=== PATIENT | male | born 1960 | race Caucasian/White ===

== ENCOUNTER → 2018-03-09 | Outpatient (REF) | payer BC | LOC: M SMT 17:13 | PROVIDERS: ATTEND Nurse Practitioner Family | DX: R97.20 Elevated prostate specific antigen [PSA] (principal) ==

== ENCOUNTER → 2018-03-31 | Outpatient (CLI) | payer BC ==
--- NOTE | 2018-03-31 16:03 | REP ---
TRANSRECTAL PROSTATE ULTRASOUND WITH ULTRASOUND GUIDANCE FOR PROSTATE BIOPSY: Real-time sonographic evaluation of prostate performed utilizing transrectal probe. Size of the gland is 4.4 x 2.7 x 5.2 cm for a total volume of 31.6 mL. Echotexture is heterogeneous. Seminal vesicles appear unremarkable. Ultrasound guidance was provided for Dr. Hinton who performed ultrasound guided biopsy of the prostate. Electronically Signed by Luis Daniel Guillen MD 03/31/2018 04:24 P
== END ==
LOC: M SMT PRO 14:00
PROVIDERS: ATTEND Urology
DX: C61 Malignant neoplasm of prostate (principal)
CPT/HCPCS: 76872; 76942; G0416

== ENCOUNTER → 2018-05-05 | Outpatient (CLI) | payer BC ==
--- NOTE | 2018-05-07 13:49 | RADONC ---
RADIATION ONCOLOGY CONSULTATION DATE: 05/05/2018 CHART NUMBER: [id number] REFERRING PHYSICIAN: Dr. Hinton DIAGNOSIS: Adenocarcinoma, prostate status post TRUS biopsy 03/31/2018 secondary to an elevation of his PSA. The tumor was noted to be Juan score 7 (3+4). The tumor was primarily located in the left base, left base lateral, left mid prostate, left lateral prostate biopsies. STAGE: [id number], group stage IIA. ICD-10: V61. ECOG PERFORMANCE STATUS: 0 HISTORY OF PRESENT ILLNESS: The patient is 57 years old and he claims that approximately 2 years ago he obtained a PSA value which was noted to be approximately 8. At that time it was recommended that the patient have a biopsy, but he declined further intervention. He saw a Dr. Norwood who was his new primary care physician and a PSA was retaken (approximately 2 years later). The pathology revealed adenocarcinoma of the prostate [place] 7 (3+4). The PSA was now approximately 10.7 as of 03/31/2018. Options were given to the patient by Dr. Hinton and the patient is leaning toward external beam radiotherapy. In fact, he has already received Eligard 45 mg subcu and is scheduled on May 19 to have fiduciary markers placed. The patient has come to us today to discuss the logistics of external beam radiotherapy and to initiate the treatment planning process. PAST MEDICAL HEALTH: Generally, the patient has been healthy most of his adult life, but he has a history of hyperlipidemia and hypertension as well as his elevated PSA. PAST SURGICAL HISTORY: He had a lumbar discectomy in 2002, and a TRUS biopsy of the prostate on 03/31/2018. MEDICATIONS: - lisinopril 2.5 mg one daily - Zyrtec 10 mg 1 tablet daily - Zantac 150 mg 1 tablet at bedtime. ALLERGIES: 1. CODEINE causes itching. 2. CHANTIX is poorly tolerated with mouth sores and dizziness. SOCIAL HISTORY: The patient is unmarried but lives with a significant other. He has no biologic children, but has an adopted child. 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 ALCOHOL HISTORY: Socially and daily. SMOKING HISTORY: He quit approximately 4-5 months ago, but prior to that smoked one pack per day since he was 14 years old. FAMILY HISTORY OF CANCER: His mother of lung cancer and his father of unknown causes, but had a diagnosis of melanoma and apparently a hematologic disorder. REVIEW OF SYSTEMS: HEENT: The patient denies any nosebleeds, chronic sinusitis, sore throats or head and neck disorders. LYMPHATICS: Denies any lymphadenopathy generalized soreness, swelling. LUNGS: Denies chronic coughing, sputum production, or hemoptysis. CARDIOVASCULAR: Has a history of hypertension, but denies any chest pain, rhythmic disorders, or history of myocardial dysfunction. ABDOMEN: Denies chronic abdominal pain, diarrhea, dysuria, hematuria or blood per rectum. 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 He also has a history of some minor back pain and has had a discectomy in the lumbar spine and S1 area. NEUROLOGIC EXAMINATION: Denies any focal, motor, or neurologic deficits, depression, anxiety, or psychiatric disorders. EXAMINATION FINDINGS: He is a well-nourished male who looks appropriate for his stated age. Weight 199, blood pressure 137/71, temperature 97.9, pulse 55, respirations 78, height 6 feet, O2 saturation 98%. HEENT: Normocephalic. EOMs intact. PERRLA. Fundi benign. LYMPHATICS: No palpable peripheral lymphadenopathy appreciated in the cervical, supraclavicular, axillary, inguinal lymph node chains. LUNGS: Clear. HEART: Regular without murmurs. ABDOMEN: Without evidence of hepatomegaly, masses, deep abdominal tenderness. EXTREMITIES: Without cyanosis, clubbing or edema. NEUROLOGIC: Examination grossly physiologic and nonfocal. IMPRESSION: Adenocarcinoma, prostate, stage [id number]. Group stage IIA. [place] 7 (3+4). The tumor was confined to the left lobe. PSA 10.7. PLAN OF RADIOTHERAPY: Patient for external beam radiotherapy as he is at intermediate risk. He is planned to have his fiducial markers placed on May 19 and can thereafter undergo CT scanning for radiation therapy treatment planning purposes. After appropriate simulation and treatment planning, we are recommending a definitive course of external beam radiotherapy to his prostate via IMRT. The indications, possible side effects such as fatigue, potential diarrhea, hemorrhoidal irritation, rectal irritation, dysuria and frequency have been discussed with the patient as well as potential erectile dysfunction. He understands and is willing to proceed as outlined. Thank you for referring this very fine gentleman to us and allowing us the opportunity of participation in his overall management. cc: Adrian Hinton MD MTDD
== END ==
LOC: M ONCR 08:52
PROVIDERS: ATTEND Radiology Radiation Oncology
DX: C61 Malignant neoplasm of prostate (principal); I10 Essential (primary) hypertension; E78.5 Hyperlipidemia, unspecified; Z88.5 Allergy status to narcotic agent; Z88.8 Allergy status to other drugs, medicaments and biological substances; Z80.1 Family history of malignant neoplasm of trachea, bronchus and lung; Z80.8 Family history of malignant neoplasm of other organs or systems; Z87.891 Personal history of nicotine dependence

== ENCOUNTER → 2018-05-19 | Outpatient (CLI) | payer BC ==
--- NOTE | 2018-05-19 18:40 | REP ---
Ultrasound guidance: History: Elevated PSA. Findings: Transrectal sonographic guidance is provided to Dr. Hinton who placed three prostate fiducial markers. Electronically Signed by Liang Marlow MD 05/19/2018 07:33 P
== END ==
LOC: M SMT 08:08
PROVIDERS: ATTEND Urology
DX: C61 Malignant neoplasm of prostate (principal)
CPT/HCPCS: 76872; A4648

== ENCOUNTER → 2018-07-21 | Outpatient (RCR) | payer BC, OTHER ==
--- NOTE | 2018-06-23 15:07 | RADONC ---
RADIATION ONCOLOGY PROGRESS NOTE DATE: 06/22/2018 CHART NUMBER: [id number] Mr. Trent is presently at a dose of 1800 cGy to his prostate and is tolerating treatments quite well at this point with no complaints related to his radiation therapy. He is having no urinary or bowel difficulties and no bone pain. The patient's review of systems is noncontributory. He denies nausea, vomiting, fevers, chills, night sweats, diplopia, headaches, anxiety or depression, anorexia, weight loss, visual disturbances, chest pain, urinary or bowel difficulties, bone pain, or neurological problems. PHYSICAL EXAMINATION: The patient's skin is in good condition with no evidence of radiation change present. He has got no moist or dry desquamation. The remainder of his physical exam remains unchanged. Mr. Trent is tolerating treatments quite well. Radiation will continue as scheduled.
--- NOTE | 2018-06-30 07:33 | RADONC ---
RADIATION ONCOLOGY PROGRESS NOTE DATE: 06/29/2018 CHART NUMBER: [id number] Mr. Trent is presently at a dose of 2700 cGy to his prostate and is tolerating treatments quite well at this point with no significant complaints related to his radiation therapy. He does have some burning urine. He has no bowel problems. The patient's review of systems is positive for burning urination but is otherwise noncontributory. He denies nausea, vomiting, fevers, chills, night sweats, diplopia, headaches, anxiety or depression, anorexia, weight loss, visual disturbances, chest pain, urinary or bowel difficulties, bone pain, or neurological problems. PHYSICAL EXAMINATION: The patient's skin is in good condition with no evidence of moist or dry desquamation. The remainder of his physical exam remains unchanged. Ms. Trent is tolerating treatments quite well and radiation will continue as scheduled.
[2018-06-30 16:31] LABS: APPEARANCE, URINE CLEAR (CLEAR); BACTERIA, URINE AUTO NEGATIVE (NEGATIVE); BILIRUBIN, URINE AUTO NEGATIVE (NEGATIVE); BLOOD, URINE BLOOD NEGATIVE (NEGATIVE); COLOR, URINE STRAW (YELLOW); GLUCOSE, URINE (UA) AUTO NEGATIVE (NEGATIVE); KETONE, URINE AUTO NEGATIVE (NEGATIVE); LEUKOCYTE ESTERASE, URINE AUTO NEGATIVE (NEGATIVE); NITRITE, URINE AUTO NEGATIVE (NEGATIVE); PROTEIN, URINE AUTO NEGATIVE (NEGATIVE); RBC, URINE AUTO 0 /HPF (0-3); SPECIFIC GRAVITY URINE AUTO 1.008 (1.002-1.035); SQUAMOUS EPITHELIAL CELL UR AU 0 /HPF (0-6); UROBILINOGEN, URINE AUTO 0.2 mg/dL (0.0-2.0); WBC, URINE AUTO 0 /HPF (0-3)
--- NOTE | 2018-07-06 21:51 | RADONC ---
RADIATION ONCOLOGY PROGRESS NOTE DATE: 07/06/2018 CHART NUMBER: [id number] Mr. Trent with a diagnosis of prostate cancer is currently receiving local regional radiotherapy, and he has achieved a dose of 3420 cGy of an anticipated 7920 cGy. Treatments have been well tolerated. He did have a few episodes of dysuria, but generally feels well. REVIEW OF SYSTEMS: He specifically denies any nausea, vomiting, diarrhea, coughing, sputum production, hemoptysis, anxiety, depression, anorexia, weight loss, visual disturbances. EXAMINATION FINDINGS: The patient has no evidence of erythema within the irradiated volume and certainly no focal desquamation. Lymphatics: No lymphadenopathy is appreciated. IMPRESSION: Tolerating therapy well. PLAN: Treatments to continue. MTDD
--- NOTE | 2018-07-16 08:00 | RADONC ---
RADIATION ONCOLOGY PROGRESS NOTE DATE: 07/14/2018 CHART NUMBER: [id number] Mr. Trent is presently at a dose of 4320 cGy to his prostate and is tolerating treatments quite well at this point with no complaints related to his radiation therapy. He is having no urinary or bowel difficulties and no bone pain. The patient's review of systems is noncontributory. He denies nausea, vomiting, fevers, chills, night sweats, diplopia, headaches, anxiety or depression, anorexia, weight loss, visual disturbances, chest pain, urinary or bowel difficulties, bone pain, or neurological problems. PHYSICAL EXAMINATION: The patient's skin is in good condition with no evidence of radiation change present. There is no moist or dry desquamation. The remainder of his physical exam remains unchanged. Ms. Trent is tolerating treatments quite well and radiation will continue as scheduled.
--- NOTE | 2018-07-22 08:35 | RADONC ---
RADIATION ONCOLOGY PROGRESS NOTE DATE: 07/20/2018 CHART NUMBER: [id number] Mr. Raffy taylor is presently a dose of 5220 cGy to his prostate and is tolerating treatments quite well at this point with no complaints related to his radiation therapy. He is having no urinary difficulties. No bone pain. REVIEW OF SYSTEMS: The patient's review of systems is noncontributory. Denies nausea, vomiting, fevers, chills, night sweats, diplopia, headaches, anxiety or depression, anorexia, weight loss, visual disturbances, chest pain, urinary or bowel difficulties, bone pain, or neurological problems. PHYSICAL EXAMINATION The patient's skin is in good condition with no evidence of moist or dry desquamation. The remainder of his physical exam remains unchanged. Mr. Trent is tolerating his treatments quite well, and radiation will continue as scheduled.
== END ==
LOC: M ONCR 06-22 11:56
PROVIDERS: ATTEND Radiology Radiation Oncology
DX: C61 Malignant neoplasm of prostate (principal)

== ENCOUNTER 2018-08-11 08:33 | Outpatient (RCR) | payer BC, OTHER ==
--- NOTE | 2018-07-27 14:19 | RADONC ---
RADIATION ONCOLOGY PROGRESS NOTE DATE: 07/27/2018 CHART NUMBER: [id number] Mr. Trent is thus far at a dose of 5940 cGy to his prostate and was last treated on July 24. He was not treated today secondary to machine breakdown. REVIEW OF SYSTEMS: As of Friday the patient's review of systems was noncontributory. He denies nausea, vomiting, fevers, chills, night sweats, diplopia, headaches, anxiety or depression, anorexia, weight loss, visual disturbances, chest pain, urinary or bowel difficulties, bone pain or neurological problems. PHYSICAL EXAMINATION: The patient's skin when he came in for treatment on Friday was in good condition with no evidence of moist or dry desquamation. The patient had been tolerating treatments quite well and radiation should resume tomorrow.
--- NOTE | 2018-08-03 10:54 | RADONC ---
RADIATION ONCOLOGY PROGRESS NOTE DATE: 08/03/2018 CHART NUMBER: [id number] Mr. Trent is currently receiving local regional radiotherapy and he has achieved a dose thus far of 6840 cGy of an anticipated 7920 cGy. Thus far treatments are going well and he has no new complaints referable to his disease or treatments. REVIEW OF SYSTEMS: He specifically denies any nausea, vomiting, significant diarrhea, dysuria, hematuria or blood per rectum. His energy level is such that he is able to maintain most day-to-day activities without any alteration of his lifestyle. Skin irritation is denied. PHYSICAL EXAMINATION: Reveals no evidence of erythema of the skin nor desquamation. The remainder of his physical examination remains unchanged. IMPRESSION: Tolerating therapy well. PLAN: Treatments to continue. MTDD
--- NOTE | 2018-08-10 09:49 | RADONC ---
RADIATION ONCOLOGY PROGRESS NOTE: DATE: 08/10/2018 CHART NUMBER: [id number] Mr. Trent is presently at a dose of 7840 cGy to his prostate and is tolerating treatments quite well at this point with no complaints related to his radiation therapy. He is having no urinary or bowel difficulties. No bone pain. REVIEW OF SYSTEMS: The patient's review of systems is noncontributory. He denies nausea, vomiting, fevers, chills, night sweats, diplopia, headaches, anxiety or depression, anorexia, weight loss, visual disturbances, chest pain, urinary or bowel difficulties, bone pain, or neurological problems. PHYSICAL EXAMINATION: The patient's skin is in good condition with no evidence of moist or dry desquamation. The remainder of his physical exam remains unchanged. Mr. Trent is tolerating treatments quite well and radiation will continue as scheduled.
--- NOTE | 2018-08-15 10:55 | RADONC ---
RADIATION ONCOLOGY TREATMENT SUMMARY DATE: 08/11/2018 CHART #: [id number] DIAGNOSIS: Prostate cancer. STAGE: II B, [id number], [place] score 7 (3-4), grade group II, PSA 10.7. TREATMENT SUMMARY: Mr. Trent is a very pleasant 57-year-old white male with the diagnosis of what appears to be a stage II B, [id number], [place] score 7(3-4) adenocarcinoma of the prostate with a PSA of 10.7 who presented to us for consideration of definitive external beam radiation therapy with IMRT/IGRT. We treated the patient to his prostate for a total dose of 7920 cGy delivered in 44 fractions of 180 cGy each over 63 elapsed days from 05/29/1918 through 08/11/2018. The patient's prostate was treated on a linear accelerator utilizing a 6 MV photon beam via IMRT/IGRT. We initially treated the prostate and seminal vesicles to a dose of 5400 cGy and subsequently coned down to the prostate itself to deliver an additional 2520 cGy once again bringing it to a total dose of 7920 cGy. Mr. Trent tolerated his treatments quite well with no difficulties related to his radiation therapy. He was able to complete therapy as prescribed without interruption. I have scheduled the patient to see me again in 1 month for further followup. He will also continue to be followed by his other physicians as well. cc: Adrian Hinton MD
== END 2018-08-21 ==
LOC: M ONCR 08:33
PROVIDERS: ATTEND Radiology Radiation Oncology
DX: C61 Malignant neoplasm of prostate (principal)

== ENCOUNTER → 2018-09-09 | Outpatient (CLI) | payer OTHER ==
--- NOTE | 2018-09-11 06:44 | RADONC ---
RADIATION ONCOLOGY FOLLOWUP NOTE DATE: 09/09/2018 CHART #: [id number] DIAGNOSIS: Prostate cancer. STAGE: II B, [id number], Juan score 7 (34), grade group II, PSA 10.7. FOLLOWUP NOTE Mr. Trent is a very pleasant 57-year-old white male with the diagnosis of a stage II B, [id number], moderately to poorly differentiated Juan score seven (3-4) adenocarcinoma of the prostate with a PSA level of initially 10.7 who is presenting to us today for routine followup visit 1 month post completion of external beam radiation therapy. The patient presents today reporting that he is doing quite well. He is doing quite well with no complaints at this time related to his radiation therapy or disease. He is having no urinary or bowel difficulties and no bone pain. REVIEW OF SYSTEMS: The patient's review of systems is noncontributory. Denies nausea, vomiting, fevers, chills, night sweats, diplopia, headaches, anxiety or depression, anorexia, weight loss, visual disturbances, chest pain, urinary or bowel difficulties, bone pain, or neurological problems. PHYSICAL EXAMINATION: The patient is a well-developed, well-nourished male in no acute distress. HEENT exam is normocephalic, atraumatic. Extraocular movements are intact. There is no palpable cervical, supraclavicular, infraclavicular, axillary, or inguinal lymphadenopathy present. Lungs are clear to auscultation and percussion. Heart has a regular rate and rhythm. Abdomen is benign with no hepatosplenomegaly, masses, or tenderness. Rectal examination reveals a normal anal sphincter tone. His prostate is smooth with no evidence of nodularity. Skeletal examination reveals no tenderness to pressure or percussion of the bony skeleton. Extremities reveal no clubbing, cyanosis, or edema. Neurologic exam is grossly intact, as is the remainder of the physical examination. ASSESSMENT: The patient is clinically ANUSHA at this time and will be seen by us again in 6 months for further followup. He will also continue be followed by his other physicians as well. cc: Adrian Hinton MD
== END ==
LOC: M ONCR 09:01
PROVIDERS: ATTEND Radiology Radiation Oncology
DX: Z85.46 Personal history of malignant neoplasm of prostate (principal); Z92.3 Personal history of irradiation

== ENCOUNTER → 2019-01-21 | Outpatient (CLI) | payer BC | LOC: M LAB 16:21 | PROVIDERS: ATTEND Radiology Radiation Oncology | DX: C61 Malignant neoplasm of prostate (principal) ==

== ENCOUNTER → 2019-02-03 | Outpatient (CLI) | payer BC, OTHER ==
--- NOTE | 2019-02-03 12:36 | RADONC ---
RADIATION ONCOLOGY FOLLOWUP NOTE DATE: 02/03/2019 CHART NUMBER: [id number] DIAGNOSIS: Prostate cancer. STAGE: II B, T2b, N0, M0, [place] score 7 (3-4), grade group 2, PSA 10.7. ECOG PERFORMANCE STATUS: 0 FOLLOWUP NOTE: Mr. Trent is a very pleasant 58-year-old white male with the diagnosis of a stage II B, [id number], Juan score 7 (3-4) adenocarcinoma of prostate with an initial PSA score of 10.7, who is presenting to me today for routine followup visit 6 months post completion of external beam radiation therapy. The patient presents today reporting that he continues have hot flashes from his Lupron shots. They are less than they were this summer and are decreasing in frequency and severity but he is continuing to have them. In addition, the patient reports that he has some rectal urgency. He says most days he goes the bathroom just once a day but some days it is three times a day and he occasionally feels strong urgency to go. REVIEW OF SYSTEMS: The patient's review of systems is noncontributory. Denies nausea, vomiting, fevers, chills, night sweats, diplopia, headaches, anxiety or depression, anorexia, weight loss, visual disturbances, chest pain, urinary or bowel difficulties, bone pain, or neurological problems. PHYSICAL EXAMINATION: The patient is a well-developed, well-nourished male in no acute distress. HEENT exam is normocephalic, atraumatic. Extraocular movements are intact. There is no palpable cervical, supraclavicular, infraclavicular, axillary, or inguinal lymphadenopathy present. Lungs are clear to auscultation and percussion. Heart has a regular rate and rhythm. Abdomen is benign with no hepatosplenomegaly, masses, or tenderness. Rectal examination reveals a normal anal sphincter tone. His prostate is smooth with no evidence of nodularity. Skeletal examination reveals no tenderness to pressure or percussion of the bony skeleton. Extremities reveal no clubbing, cyanosis, or edema. Neurologic exam is grossly intact, as is the remainder of the physical examination. ASSESSMENT: The patient is clinically ANUSHA at this time. He is being followed and managed closely by his urologist doctor, Adrian Hinton MD and therefore is being discharged from my followup except on a p.r.n. basis. I did have a lengthy discussion with the patient and he is just 6 months out from radiation. I reassured him that his episodic rectal urgency is normal at this point and should decrease with time. He has not taken any Imodium and I have recommended he may wish to try that if he is having any issues. In addition, I reassured him that as time goes on further from his hormonal treatments his symptoms should diminish. He will be followed by Dr. Hinton for this. I have discharged this patient from my followup except on a p.r.n. basis.
== END ==
LOC: M ONCR 09:24
PROVIDERS: ATTEND Radiology Radiation Oncology
DX: C61 Malignant neoplasm of prostate (principal)

== ENCOUNTER → 2020-09-21 | Outpatient (REF) | payer BC ==
[2020-09-21 12:17] LABS: BASO % 0.2 % (0.0-1.0); EOS # 0.1 10^3/uL (0.0-0.5); EOS % 1.6 % (0.0-3.0); HEMOGLOBIN 14.1 g/dl (13.5-17.5); LYMPH # 1.6 10^3/uL (1.5-5.0); LYMPH % 28.2 % (24.0-44.0); MEAN CORPUSCULAR HGB CONC 32.8 g/dl (32.0-36.5); MEAN CORPUSCULAR VOLUME 94.5 fl (80.0-96.0); MONO # 0.6 10^3/uL (0.0-0.8); MONO % 10.7 % (2.0-8.0); NEUTROPHILS # 3.3 10^3/uL (1.5-8.5); NEUTROPHILS % 58.9 % (36.0-66.0); PLATELET COUNT, AUTOMATED 234 10^3/uL (150-450); RED BLOOD COUNT 4.55 10^6/uL (4.30-6.10); WHITE BLOOD COUNT 5.6 10^3/uL (4.0-10.0)
[2020-09-21 12:43] LABS: ALBUMIN 3.6 GM/DL (3.2-5.2); ALT/SGPT 35 U/L (12-78); BILIRUBIN,TOTAL 0.5 MG/DL (0.2-1.0); BLOOD UREA NITROGEN 22 MG/DL (7-18); CARBON DIOXIDE LEVEL 28 MEQ/L (21-32); CHLORIDE LEVEL 103 MEQ/L (98-107); CREATININE FOR GFR 0.98 MG/DL (0.70-1.30); GLOMERULAR FILTRATION RATE > 60.0 (>56); GLUCOSE, FASTING 98 MG/DL (70-100); POTASSIUM SERUM 4.6 MEQ/L (3.5-5.1); SODIUM LEVEL 137 MEQ/L (136-145); TOTAL PROTEIN 7.3 GM/DL (6.4-8.2)
[2020-09-21 12:58] LABS: ERYTHROCYTE SEDIMENTATION RATE 7 mm/hr (0-20)
== END ==
LOC: M SFHCRHEU 08:57
PROVIDERS: ATTEND Internal Medicine Rheumatology
DX: M25.50 Pain in unspecified joint (principal); H16.203 Unspecified keratoconjunctivitis, bilateral

== ENCOUNTER → 2020-12-03 | Outpatient (CLI) | payer BC ==
--- NOTE | 2020-12-03 19:06 | REPVR ---
PROCEDURE INFORMATION: Exam: MR Pelvis Without Contrast, Musculoskeletal Exam date and time: 12/03/2020 5:42 PM Age: 59 years old Clinical indication: Patient HX: Ankylosing spondylosis, severe low back and pelvic pain TECHNIQUE: Imaging protocol: Magnetic resonance images of the pelvis without intravenous contrast. Exam focused on the musculoskeletal system. COMPARISON: US PROSTATE TRANSRECTAL 03/31/2018 2:24 PM FINDINGS: There is no MR evidence of acute fracture or dislocation. Alignment is anatomic. Bone marrow signal is normal. There is partial bony fusion of the sacroiliac joints. The hip joint spaces are preserved. No acute erosive or destructive changes are seen. There is no lytic or blastic lesion. There is no significant effusion. There is mild tendinopathy at the bilateral gluteal insertions and hamstring origins. No acute tendon or ligament injury is identified. There is no fluid collection or soft tissue mass. The examination was not optimized to evaluate the intrapelvic soft tissues. There are small bilateral hydroceles. IMPRESSION: 1. No acute pathology. 2. Partial bony fusion of the sacroiliac joints. Electronically signed by: Romario Lopes On 12/03/2020 19:06:01 PM
== END ==
LOC: M RAD 15:01
PROVIDERS: ATTEND Internal Medicine Rheumatology
DX: M45.0 Ankylosing spondylitis of multiple sites in spine (principal)

== ENCOUNTER 2022-10-07 08:07 | Day surgery (SDC) | payer BC ==
[~2022-10-07] VITALS: Ht 182.9 cm; Wt 88.6 kg
[~2022-10-07 08:07] MED LIST: CETI10CH PO; LOSA50TA28 PO
[2022-10-07] MEDS ORDERED: LIDOCAINE 2% 100MG/5ML SDV (FOR ANES.) As Ordered ONE (10:14)
[2022-10-07] MEDS ORDERED: propofoL 500 MG/50 ML VIAL As Ordered ONE (10:14)
[2022-10-07 10:30] VITALS: BP 190/93; O2SAT 100
== END 2022-10-07 10:30 | disposition home or self-care (01) ==
LOC: M OPP 08:07
PROVIDERS: ATTEND Internal Medicine Gastroenterology
DX: Z12.11 Encounter for screening for malignant neoplasm of colon (principal); Z86.010 Personal history of colon polyps; D12.6 Benign neoplasm of colon, unspecified; K64.8 Other hemorrhoids; K64.4 Residual hemorrhoidal skin tags; K57.30 Diverticulosis of large intestine without perforation or abscess without bleeding; Z87.891 Personal history of nicotine dependence; Z79.899 Other long term (current) drug therapy; Z88.5 Allergy status to narcotic agent

== ENCOUNTER → 2022-10-22 | Outpatient (REF) | LOC: M PLAIMG 14:35 | PROVIDERS: ATTEND Internal Medicine | DX: M17.11 Unilateral primary osteoarthritis, right knee (principal); M25.551 Pain in right hip ==

== ENCOUNTER → 2023-09-26 | Outpatient (CLI) | payer MEDICAID, OTHER | LOC: M RAD 08:05 | PROVIDERS: ATTEND Internal Medicine Rheumatology | DX: Z53.9 Procedure and treatment not carried out, unspecified reason (principal) ==